=== PATIENT | female | born 1940 ===

== ENCOUNTER 2019-02-05 14:50 | Inpatient (IN) | payer OTHER ==
[~2019-02-05] VITALS: Ht 152.4 cm; Wt 59.0 kg
[~2019-02-05 14:50] MED LIST: CILOSTAZOL100 MG; FOSAMAX5 MG; GLIMEPIRIDE2 MG; ISOSORBIDE DINI30 MG; METOPROLOL SUCC50 MG; PLAVIX75 MG
--- NOTE | 2019-02-05 15:30 | NUR ---
PTE REFIERE DEDO DEL PIE CON CELULITIS SE LANNY S/V YS EUBICA EN AREA DE OBSERVACION
--- NOTE | 2019-02-05 17:08 | NUR ---
EVALUA PACIENTE Y ORDENA [place] MEDICO DEL CUAL SE ORIENTA PACIENTE,LA MISMA REFIERE ENTENDER. SE COLECTAN MUESTRAS DE LABORATORIOS Y ADMINISTRAN MEDICAMENTOS IRENA ORDEN MEDICA SIGUIENDO MEDIDAS ASEPTICAS. PROCEDIMIENTOS LLEVADOS A CABO POR EULOGIO.
== END 2019-02-11 18:06 | disposition home or self-care (01) | DRG 603 ==
LOC: ER 14:50 → MEDI 22:13 → MEDJ 22:13 → MEDI 02-11 18:06
PROVIDERS: ADMIT Internal Medicine
PROC: BQ3LZZZ Magnetic Resonance Imaging (MRI) of Right Foot (ICD-10-PCS; principal; 2019-02-05)
DX: L03.115 Cellulitis of right lower limb (principal); N39.0 Urinary tract infection, site not specified; E11.65 Type 2 diabetes mellitus with hyperglycemia; I10 Essential (primary) hypertension; B95.61 Methicillin susceptible Staphylococcus aureus infection as the cause of diseases classified elsewhere; B95.4 Other streptococcus as the cause of diseases classified elsewhere
CPT/HCPCS: 73221